=== PATIENT | male | born 1990 | race Caucasian/White ===

== ENCOUNTER 2017-10-02 17:10 | Emergency (ER) | payer MEDICAID, OTHER ==
[2017-10-02] MEDS: HYDROCODONE/APAP (5/325) TAB PO (18:30)
[2017-10-02] MEDS: ONDANSETRON (ODT) 4 MG TAB ODT (18:30)
== END 2017-10-02 20:30 | disposition home or self-care (01) ==
LOC: FTE 17:10
DX: H92.02 Otalgia, left ear (principal); R51 Headache; M54.9 Dorsalgia, unspecified
CPT/HCPCS: 72040; 72072; 72100; 99284-25